=== PATIENT | female | born 1955 | race Caucasian/White ===

== ENCOUNTER 2020-07-08 09:56 | Outpatient (CLI) | payer MEDICARE, SELFPAY ==
--- NOTE | ~2020-07-08 | MR_ITS ---
EXAMINATION: MR lumbar spine [facility] EXAM DATE: 07/08/2020 10:47 INDICATION: Chronic low back pain, left hip pain. TECHNIQUE: Multi-sequential, multiplanar MR images of the lumbar spine were obtained without contrast . Sagittal T1, T2, T2 fat saturation images. Axial T2 weighted images. Comparison is made to prior examination from 05/06/2015 . FINDINGS: Moderate disc disease L5-S1. The conus medullaris terminates at the L1 level and has normal signal intensity and morphology. There are no suspicious marrow signal abnormalities. The vertebral bodies are aligned in the AP dimension. Paraspinal soft tissue is unremarkable. Level by level evaluation: T12-L1: Disc does not extend beyond the endplate margin. Facet arthropathy: Mild. Neural foraminal stenosis: No stenosis. Central canal stenosis: No stenosis. L1-L2: Disc does not extend beyond the endplate margin. Facet arthropathy: Mild. Neural foraminal stenosis: No stenosis. Central canal stenosis: No stenosis. L2-L3: There is a minimal diffuse disc bulge. Facet arthropathy: Mild to moderate. Neural foraminal stenosis: No stenosis. Central canal stenosis: No stenosis. L3-L4: There is a mild diffuse disc bulge. Facet arthropathy: Moderate left, mild to moderate right macro flavum. Neural foraminal stenosis: Mild bilateral. Central canal stenosis: Mild. L4-L5: There is a mild to moderate diffuse disc bulge asymmetric to the left. Facet arthropathy: Moderate . Ligamentum flavum enlargement. Neural foraminal stenosis: Mild to moderate bilateral. Central canal stenosis: Moderate, left lateral recess narrowing. L5-S1: There is a moderate diffuse disc bulge asymmetric to the left Facet arthropathy: Moderate. Neural foraminal stenosis: Moderate bilateral. Central canal stenosis: Moderate. Compared to 2016, there is been mild interval progression in lower lumbar predominant spondylosis. IMPRESSION: 1. Moderate lower lumbar spondylosis. Reviewed, dictated and finalized at location A.
== END 2020-07-08 09:57 ==
DX: M47.815 Spondylosis without myelopathy or radiculopathy, thoracolumbar region (principal); M48.05 Spinal stenosis, thoracolumbar region; M47.817 Spondylosis without myelopathy or radiculopathy, lumbosacral region; M48.07 Spinal stenosis, lumbosacral region
CPT/HCPCS: 72148

== ENCOUNTER 2020-09-10 14:08 | Outpatient (CLI) | payer MEDICARE, SELFPAY ==
--- NOTE | ~2020-09-10 | MR_ITS ---
EXAMINATION: MR elbow RT wo con DATE: 09/10/2020 16:10 INDICATION: Right elbow hyperextension injury with palpable pop TECHNIQUE: Magnetic resonance imaging (MRI) of the right elbow was performed without intravenous cont rast. Sequences included coronal, axial, and sagittal PD-weighted FS FSE and coronal, axial, and sagi ttal PD-weighted FSE. COMPARISON: None FINDINGS: Osseous/other: Normal alignment. Normal marrow signal with no marrow edema, fracture, osteochondral lesion or abnor mal marrow replacing process. There is mild edema along the proximal pronator teres muscle consistent with low-grade strain. Mild subcutaneous edema at the medial side of the elbow and proximal forearm. Tendons: Triceps, biceps brachii and brachialis tendons are normal. Mild tendinopathy without discrete tear a t the common flexor tendon wad. Similarly there is mild tendinopathy without discrete tear at the com mon extensor tendon wad. Ligaments: The medial and lateral collateral ligament complexes are normal. Cubital tunnel: Cubital tunnel is unremarkable with normal signal and caliber of the ulnar nerve. Fluid: Physiologic amount of fluid the elbow joint. IMPRESSION: 1. Low-grade strain of the proximal pronator teres muscle. 2. Mild tendinopathy without discrete tears at the common flexor and extensor tendon wads. Reviewed, dictated and finalized at location A. IMPRESSION: 1. Low-grade strain of the proximal pronator teres muscle. 2. Mild tendinopathy without discrete tears at the common flexor and extensor t endon wads.
== END 2020-09-10 14:09 ==
DX: M79.601 Pain in right arm (principal)
CPT/HCPCS: 73221